=== PATIENT | female | born 1980 | race African-American/Black ===

== ENCOUNTER 2025-02-22 13:53 | Emergency (ER) | payer OTHER, MEDICAID, SELFPAY ==
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
[2025-02-22 13:58] VITALS: BP 129/84; PULSE 134; RESP 18; TEMP 36.2; O2SAT 98
--- NOTE | 2025-02-22 14:06 | ECG_ITS ---
Test Date: 2025-02-22 14:11:46 Measurements Intervals Benson Rate: 125 P: 59 NC: 128 QRS: -18 QRSD: 77 T: 33 QT: 336 QTc: 485 Interpretive Statements SINUS TACHYCARDIA LEFT VENTRICULAR HYPERTROPHY WITH ST-T CHANGE POSSIBLE ANTERIOR MYOCARDIAL INFARCTION , PROBABLY OLD BORDERLINE T WAVE ABNORMALITY- INF/LAT LEADS BASELINE ARTIFACT- I, II, AVR ABNORMAL ECG No previous ECG available for comparison Electronically Signed On 02-22-2025 14:20:25 CDT by Jean Paul sEpinoza D.O.
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
[2025-02-22 15:57] LABS: Hematocrit 35.5 % (37.0-47.0); Hemoglobin 12.1 g/dL (12.0-15.0); Immature Granulocyte Percent A 0.4 % (0-0.5); Lymphocytes Absolute Auto 2.03 K/mm3 (0.9-3.2); Mean Corpuscular HGB Conc 34.1 g/dl (32-36); Mean Corpuscular Hemoglobin 32.3 pg (26-34); Mean Corpuscular Volume 94.7 fl (80-100); Nucleated Red Blood Cells Absolute Auto 0.000 K/mm3 (0.0-0.012); Nucleated Red Blood Cells Perc 0.0 % (0.0-0.2); Platelet Count Result 232 k/mm3 (150-375); Red Blood Count 3.75 M/mm3 (4.2-5.4); White Blood Count 13.4 K/mm3 (4.5-10.0)
[2025-02-22 16:10] LABS: Alanine Aminotransferase 31 U/L (6-35); Albumin Level 4.0 g/dL (3.5-5.1); Alkaline Phosphatase 148 U/L (38-126); Anion Gap 17 mmol/L (4-12); Aspartate Amino Transferase 106 U/L (14-36); Bilirubin,Total 1.1 mg/dL (0.2-1.3); Blood Urea Nitrogen 19 mg/dL (7-17); Calcium 8.5 mg/dL (8.4-10.2); Carbon Dioxide 21 mmol/L (22-30); Chloride 100 mmol/L (98-107); Estimated CRCL calculation 52 ml/min; Estimated Glomerular Filt Rate 58; Glucose 112 mg/dL (65-110); Magnesium 1.4 mg/dL (1.6-2.3); Potassium 2.9 mmol/L (3.4-5.0); Sodium 138 mmol/L (137-145); Total Protein 9.7 g/dL (6.3-8.2)
[2025-02-22 16:25] VITALS: BP 125/85; PULSE 85; RESP 16; TEMP 36.6; O2SAT 100
[2025-02-22 16:53] VITALS: BP 128/93; PULSE 118; RESP 20; TEMP 36.6; O2SAT 99
[2025-02-22] MEDS: POTASSIUM CHLORIDE 20 MEQ ER TABLET 40 MEQ PO (17:18)
[2025-02-22] MEDS: MAGNESIUM OXIDE 400 MG TABLET PO (17:18)
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
[2025-02-22 18:01] VITALS: BP 120/93; PULSE 111; RESP 18; O2SAT 99
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
--- OUTSIDE RECORDS SUMMARY | 2025-02-22 21:26 | XMS_ITS | Clinical Summary ---
Author Organization [facility] Address [address] [place] [address] Care Team Providers Care Granite Installer Name Role Phone No, Physician Primary Care Provider [phone] Allergies No known active allergies Medications cyclobenzaprine (FLEXERIL) 10 mg tabletIndicatio ns:Muscle Spasm Take 1 tablet (10 mg total) by mouth 2 (two) times a day as needed for muscle spasms. 20 tablet 09/10/2017 Active acetaminophen (TYLENOL) 500 mg tablet Take 1 tablet (500 mg total) by mouth every 6 (six) hours as needed for pain (1 tablet for mild to moderate pain. 2 tablets for severe pain) 30 tablet 10/10/2018 Active ibuprofen (ADVIL,MOTRIN) 600 mg tablet Take 1 tablet (600 mg total) by mouth 3 (three) times a day 90 tablet 10/10/2018 Active chlordiazePOXID E (LIBRIUM) 25 mg capsule On day 1, take 1 tablet every 6 hours. On day 2, take 1 tablet every 8 hours. On day 3, take 1 tablet every 12 hours. On day 4, take 1 tablet. 10 capsule 07/26/2020 Active Active Problems No known active problems Resolved Problems Problem Noted Date Diagnosed Date Resolved Date Closed nondisplaced fracture of body of right scapula 09/14/2017 07/26/2020 Assessment & Plan (09/14/2017 4:07 PM DEVELOPER PROGRAMMER ANALYST): Patient has a nondisplaced scapular fracture. She should continue with the sling but remove it to perform pendulum exercises and wall walking three or 4 times a day. These exercises were demonstrated for her. She should avoid any heavy lifting pushing or pulling. She should return for follow-up films in three weeks 08/02/2009 07/26/2020 Immunizations Immunization Administration Dates Next Due H1N1 Inj 08/02/2009 Influenza, Unspecified 04/02/2013 PPD TEST 08/02/2009 Tdap 01/30/2022,04/01/2013 Medical History Medical History Date Comments Seizures (HCC) Alcohol abuse Schizophrenia Panic disorder Social History Tobacco Use Types Packs/Day Years Used Date Smoking Tobacco: Never Smokeless Tobacco: Never Alcohol Use Standard Drinks/Week Comments Yes 7 (1 standard drink = 0.6 oz pur e alcohol) a beer a day Personal Safety Answer Date Recorded Have you ever been in or are you currently in a harmful physical or emotional relationship or is someone making you feel afraid or unsafe? Denies 05/22/2024 Comments Unknown Sex and Gender Information Value Date Recorded Sex Assigned at Not on file Legal Sex Female 6:56 PM DEVELOPER PROGRAMMER ANALYST Gender Identity Not on file Sexual Orientation Not on file Obstetrics History Last Filed Vital Signs Vital Sign Reading Time Taken Comments Blood Pressure 124/83 05/22/2024 11:51 AM DEVELOPER PROGRAMMER ANALYST Pulse 109 05/22/2024 6:25 PM DEVELOPER PROGRAMMER ANALYST Temperature 37.1 C (98.7 F) 05/22/2024 11:51 AM DEVELOPER PROGRAMMER ANALYST Respiratory Rate 18 05/22/2024 11:51 AM DEVELOPER PROGRAMMER ANALYST Oxygen Saturation 100% 05/22/2024 6:25 PM DEVELOPER PROGRAMMER ANALYST Inhaled Oxygen Concentration - - Weight 59.9 kg (132 lb) 05/22/2024 11:51 AM DEVELOPER PROGRAMMER ANALYST Height 162.6 cm (5' 4) 05/22/2024 11:51 AM DEVELOPER PROGRAMMER ANALYST Body Mass Index 22.66 05/22/2024 11:51 AM DEVELOPER PROGRAMMER ANALYST Plan of Treatment Health Maintenance Due Date Last Done Comments Breast Cancer Screening-Mammogram 1978 Cervical Cancer Screening 1978 Colon Cancer Screening-Colonoscopy 1978 Depression Screening 1978 Hepatitis C Screening 1978 Hepatitis B Screening 01/06/1996 Regular Well Visit/Exam 18-64 01/06/1996 Influenza Vaccine (#1) 2025 04/02/2013 DTaP/Tdap/Td Vaccine (3 - Td or Tdap) 01/31/2032 01/30/2022, 04/01/2013 Pneumococcal vaccine <65 Aged Out No longer eligible based on patient's age to complete this topic Insurance [facility] [employer] [facility] [employer] Care Teams Granite Installer Relationship Specialty Start Date End Date No, Physician PCP - General 05/22/24
== END 2025-02-22 21:31 | disposition home or self-care (01) ==
LOC: ANHED 21:25
PROVIDERS: Physician Assistant; Emergency Provider Student in an Organized Health Care Education/Training Program
DX: T74.21XA Adult sexual abuse, confirmed, initial encounter (principal); Y07.030 Male partner, current, perpetrator of maltreatment and neglect; E83.42 Hypomagnesemia; E87.6 Hypokalemia; I10 Essential (primary) hypertension; R00.0 Tachycardia, unspecified; R94.31 Abnormal electrocardiogram [ECG] [EKG]; I51.7 Cardiomegaly
CPT/HCPCS: 36415; 73030; 80053; 83735; 85025; 93005; 99283; 99284; A9270